=== PATIENT | male | born 1985 | race Hispanic/Latino ===

== ENCOUNTER 2021-03-17 15:06 | Emergency (ER) | payer OTHER ==
[~2021-03-17] VITALS: Ht 160 cm; Wt 74.4 kg
[2021-03-17 16:36] LABS: APPEARANCE,URINE CLEAR (CLEAR); BILIRUBIN,URINE NEGATIVE (NEGATIVE); COLOR,URINE YELLOW (YELLOW); GLUCOSE, URINE (UA) NEGATIVE (NEGATIVE); KETONES,URINE NEGATIVE (NEGATIVE); LEUKOCYTE ESTERASE ,URINE NEGATIVE (NEGATIVE); NITRATE,URINE NEGATIVE (NEGATIVE); OCCULT BLOOD,URINE NEGATIVE (NEGATIVE); PH,URINE 8.5 (5.0-8.0); PROTEIN,URINE TRACE mg/dL (NEGATIVE); UROBILINOGEN,URINE 0.2 mg/dL (0.2-1.0)
[2021-03-17 16:46] LABS: BACTERIA,URINE Few /HPF (None Seen); RBC,URINE 0-1 /HPF (0-1); WBC,URINE 0-1 /HPF (0-1)
[2021-03-17 16:47] LABS: MUCUS,URINE Moderate LPF (None Seen); SQUAMOUS EPITHELIAL CELL,UR Rare /HPF (0-2)
[2021-03-17 17:17] LABS: BASOPHILS % (AUTO) 0.2 % (0.0-5.0); EOSINOPHILS % (AUTO) 0.1 % (0.0-8.0); HEMATOCRIT 40.7 % (42-54); LYMPHOCYTES % (AUTO) 5.6 % (21.0-51.0); MEAN CORPUSCULAR HEMOGLOBIN 26.8 pg (27.0-33.0); MEAN CORPUSCULAR HGB CONC 32.4 g/dL (32.0-36.0); MEAN CORPUSCULAR VOLUME 82.7 fL (79-99); MONOCYTES % (AUTO) 3.9 % (3.0-13.0); NEUTROPHILS % (AUTO) 89.6 % (40.0-77.0); PLATELET COUNT (AUTO) 268 K/uL (130-400); RED BLOOD CELL COUNT(AUTO) 4.92 MIL/uL (4.50-6.20); RED CELL DISTRIBUTION WIDTH 14.3 % (11.0-15.5); WHITE BLOOD COUNT (AUTO) 8.9 K/uL (4.8-10.8)
[2021-03-17 17:22] LABS: CREATININE 0.9 mg/dL (0.5-1.5); POTASSIUM 3.6 mmol/L (3.5-5.1)
[2021-03-17 17:26] LABS: ALBUMIN 3.4 g/dL (3.5-5.0); BILIRUBIN,TOTAL 0.3 mg/dL (0.2-1.0); TOTAL PROTEIN, SERUM 7.3 g/dL (6.0-8.3)
[2021-03-17] MEDS ORDERED: KETOROLAC 30MG VIAL (30MG/ML) ONE (18:06)
[2021-03-17] MEDS ORDERED: KETOROLAC 30MG VIAL (30MG/ML) IV ONE (18:30)
[2021-03-17 19:09] VITALS: BP 140/89
[2021-03-17] MEDS ORDERED: DICL35CA3 PO (19:17)
== END 2021-03-17 19:29 | disposition home or self-care (01) ==
LOC: EDH 15:06
DX: N50.812 Left testicular pain (principal); R10.30 Lower abdominal pain, unspecified; R51.9 Headache, unspecified; R30.0 Dysuria; F32.A Depression, unspecified; F41.9 Anxiety disorder, unspecified; K21.9 Gastro-esophageal reflux disease without esophagitis; Z79.1 Long term (current) use of non-steroidal anti-inflammatories (NSAID); Z90.49 Acquired absence of other specified parts of digestive tract
CPT/HCPCS: 36415; 74176; 76870; 80053; 81001; 82150; 83690; 85025; 96374; 99284; J1885

== ENCOUNTER 2021-03-20 10:24 | Emergency (ER) | payer OTHER ==
[~2021-03-20] VITALS: Ht 160 cm; Wt 74.8 kg
[~2021-03-20 10:24] MED LIST: DICL35CA3 PO
[2021-03-20] MEDS ORDERED: ACETAMINOPHEN 325 MG TAB PO ONE (11:00)
[2021-03-20] MEDS ORDERED: PANTOPRAZOLE 40 MG/VIAL IVP ONE (11:00)
[2021-03-20] MEDS ORDERED: LACTATED RINGERS 1000ML 1,000 ML IV ONE (11:00)
[2021-03-20 11:02] LABS: BASOPHILS % (AUTO) 0.7 % (0.0-5.0); EOSINOPHILS % (AUTO) 2.7 % (0.0-8.0); HEMATOCRIT 39.3 % (42-54); LYMPHOCYTES % (AUTO) 34.4 % (21.0-51.0); MEAN CORPUSCULAR HEMOGLOBIN 26.4 pg (27.0-33.0); MEAN CORPUSCULAR HGB CONC 31.8 g/dL (32.0-36.0); MEAN CORPUSCULAR VOLUME 83.1 fL (79-99); NEUTROPHILS % (AUTO) 47.7 % (40.0-77.0); PLATELET COUNT (AUTO) 247 K/uL (130-400); RED BLOOD CELL COUNT(AUTO) 4.73 MIL/uL (4.50-6.20); RED CELL DISTRIBUTION WIDTH 14.2 % (11.0-15.5); WHITE BLOOD COUNT (AUTO) 4.4 K/uL (4.8-10.8)
[2021-03-20 11:15] LABS: CREATININE 0.9 mg/dL (0.5-1.5); POTASSIUM 3.5 mmol/L (3.5-5.1)
[2021-03-20 11:19] LABS: ALBUMIN 3.1 g/dL (3.5-5.0); BILIRUBIN,TOTAL 0.2 mg/dL (0.2-1.0)
[2021-03-20] MEDS ORDERED: IOHEXOL-350 75 ML VIAL IV ONE (12:59)
[2021-03-20] MEDS ORDERED: FAMO20TA8 PO (14:24)
[2021-03-20] MEDS ORDERED: DICY10 PO (14:24)
[2021-03-20 16:05] VITALS: BP 105/70
== END 2021-03-20 16:07 | disposition home or self-care (01) ==
LOC: EDH 10:24
DX: K52.9 Noninfective gastroenteritis and colitis, unspecified (principal); Z90.49 Acquired absence of other specified parts of digestive tract
CPT/HCPCS: 36415; 74177; 80053; 82270; 82550; 83690; 84484; 85025; 96361; 96374; 99285; C9113; J7120; Q9967

== ENCOUNTER 2021-07-08 15:05 | Emergency (ER) | payer OTHER ==
[~2021-07-08] VITALS: Ht 160 cm; Wt 80.7 kg
[~2021-07-08 15:05] MED LIST changes: +DICY10 PO; +FAMO20TA8 PO
[2021-07-08 16:18] LABS: BASOPHILS % (AUTO) 0.3 % (0.0-5.0); EOSINOPHILS % (AUTO) 4.6 % (0.0-8.0); HEMATOCRIT 39.9 % (42-54); LYMPHOCYTES % (AUTO) 26.9 % (21.0-51.0); MEAN CORPUSCULAR HEMOGLOBIN 25.9 pg (27.0-33.0); MEAN CORPUSCULAR HGB CONC 31.6 g/dL (32.0-36.0); MEAN CORPUSCULAR VOLUME 82.1 fL (79-99); MONOCYTES % (AUTO) 6.8 % (3.0-13.0); NEUTROPHILS % (AUTO) 61.1 % (40.0-77.0); PLATELET COUNT (AUTO) 263 K/uL (130-400); RED BLOOD CELL COUNT(AUTO) 4.86 MIL/uL (4.50-6.20); RED CELL DISTRIBUTION WIDTH 15.9 % (11.0-15.5); WHITE BLOOD COUNT (AUTO) 6.9 K/uL (4.8-10.8)
[2021-07-08 16:29] LABS: CREATININE 0.8 mg/dL (0.5-1.5); POTASSIUM 4.1 mmol/L (3.5-5.1)
[2021-07-08 16:34] LABS: ALBUMIN 3.7 g/dL (3.5-5.0); BILIRUBIN,TOTAL 0.1 mg/dL (0.2-1.0); TOTAL PROTEIN, SERUM 7.3 g/dL (6.0-8.3)
[2021-07-08] MEDS ORDERED: IOHEXOL-350 50ML VIAL IV ONE (18:11)
[2021-07-08] MEDS ORDERED: DEXAMETHASONE 4 MG TAB PO SCH (19:30)
[2021-07-08] MEDS ORDERED: GABAPENTIN 100 MG CAPSULE PO SCH (19:30)
[2021-07-08] MEDS ORDERED: IBUPROFEN 600 MG TABLET PO ONE (19:30)
[2021-07-08] MEDS ORDERED: IBUP-2070 PO (19:34)
[2021-07-08] MEDS ORDERED: GABA-529 PO (19:34)
[2021-07-08] MEDS ORDERED: METH4TAB3 PO (19:34)
[2021-07-08 20:11] VITALS: BP 136/74
== END 2021-07-08 20:12 | disposition home or self-care (01) ==
LOC: EDH 15:05
DX: J32.9 Chronic sinusitis, unspecified (principal); J34.0 Abscess, furuncle and carbuncle of nose; R51.9 Headache, unspecified; F32.A Depression, unspecified; F41.9 Anxiety disorder, unspecified
CPT/HCPCS: 36415; 70470; 80053; 85025; 99285; J8540; Q9967

== ENCOUNTER 2023-06-23 01:19 | Emergency (ER) | payer BC, OTHER ==
[~2023-06-23] VITALS: Ht 162.6 cm; Wt 104.3 kg
[~2023-06-23 01:19] MED LIST changes: +GABA-529 PO; +IBUP-2070 PO; +METH4TAB3 PO
[2023-06-23 01:27] VITALS: BP 123/84; PULSE 80; RESP 18; O2SAT 96
[2023-06-23] MEDS: TRAMADOL HCL 50 MG TABLET PO ONE (01:35)
[2023-06-23] MEDS: KETOROLAC 30MG VIAL (30MG/ML) IVP ONE (01:35)
[2023-06-23] MEDS: SOLU-MEDROL 125MG VIAL IVP ONE (01:35)
[2023-06-23 01:43] LABS: BASOPHILS # (AUTO) 0.03 K/uL (0.00-0.20); BASOPHILS % (AUTO) 0.4 % (0.0-5.0); EOSINOPHILS # (AUTO) 0.24 K/uL (0.00-0.70); EOSINOPHILS % (AUTO) 3.4 % (0.0-8.0); HEMATOCRIT 39.1 % (42-54); IMMATURE GRANULOCYTE ABSOLUTE 0.03 K/uL (0-1); LYMPHOCYTES # (AUTO) 2.5 K/uL (1.0-4.8); LYMPHOCYTES % (AUTO) 35.9 % (21.0-51.0); MEAN CORPUSCULAR HEMOGLOBIN 23.9 pg (27.0-33.0); MEAN CORPUSCULAR HGB CONC 30.4 g/dL (32.0-36.0); MEAN CORPUSCULAR VOLUME 78.7 fL (79-99); MONOCYTES # (AUTO) 0.6 K/uL (0.1-1.0); MONOCYTES % (AUTO) 8.1 % (3.0-13.0); NEUTROPHILS # (AUTO) 3.7 K/uL (1.8-7.7); NEUTROPHILS % (AUTO) 51.8 % (40.0-77.0); PLATELET COUNT (AUTO) 272 K/uL (130-400); RED BLOOD CELL COUNT(AUTO) 4.97 MIL/uL (4.50-6.20); RED CELL DISTRIBUTION WIDTH 16.3 % (11.0-15.5); WHITE BLOOD COUNT (AUTO) 7.1 K/uL (4.8-10.8)
[2023-06-23 01:53] LABS: CREATININE 0.8 mg/dL (0.5-1.5); POTASSIUM 3.5 mmol/L (3.5-5.1)
[2023-06-23 01:57] LABS: ALBUMIN 3.5 g/dL (3.5-5.0); BILIRUBIN,TOTAL 0.2 mg/dL (0.2-1.0); TOTAL PROTEIN, SERUM 7.2 g/dL (6.0-8.3); URIC ACID 4.5 mg/dL (2.6-7.2)
[2023-06-23] MEDS ORDERED: KETO10 PO (02:04)
== END 2023-06-23 02:26 | disposition home or self-care (01) ==
LOC: EDH 01:19
DX: M25.561 Pain in right knee (principal); M25.562 Pain in left knee; Z90.49 Acquired absence of other specified parts of digestive tract
CPT/HCPCS: 99284; 96374; 96375; 84550; 80053; 85025; 86140; 36415; 73562; J2930; J1885